=== PATIENT | female | born 1935 | race African-American/Black ===

== ENCOUNTER 2021-01-29 17:19 | Inpatient (IN) | payer OTHER ==
[~2021-01-29] VITALS: Ht 162.6 cm; Wt 54.4 kg
[2021-01-29 18:52] LABS: BASOPHILS % 1.3 % (0.0-2.0); EOSINOPHILS % 2.7 % (0.0-5.0); HEMOGLOBIN. 11.9 g/dL (12.0-16.0); LYMPHOCYTES % 24.6 % (20.0-50.0); MEAN CORPUSCULAR VOLUME 93.2 fL (81.0-99.0); MONOCYTES % 7.1 % (2.0-8.0); NEUTROPHILS % 64.3 % (40.0-76.0); PLATELET 249 x1000/uL (130-400); RED BLOOD CELL COUNT 3.97 mill/uL (4.2-5.4); RED CELL DISTRIBUTION WIDTH 13.1 % (11.6-14.6)
[2021-01-29 19:00] LABS: CHLORIDE 105 mEq/L (98-107)
[2021-01-30] MEDS: AMLODIPINE 10MG TABLET PO SCH (09:33)
[2021-01-30] MEDS ORDERED: DEXTROSE 50% WATER 50ML SYRINGE IV PRN (15:15)
[2021-01-30 16:00] VITALS: BP 122/68
[2021-01-30 16:08] LABS: BASOPHILS % 0.8 % (0.0-2.0); HEMATOCRIT. 38.4 % (36.0-48.0); HEMOGLOBIN. 12.9 g/dL (12.0-16.0); LYMPHOCYTES % 29.4 % (20.0-50.0); MEAN CORPUSCULAR HEMOGLOBIN 30.5 pg (28.0-32.0); MEAN PLATELET VOLUME 9.1 fl (7.4-10.4); MONOCYTES % 7.4 % (2.0-8.0); NEUTROPHILS % 60.4 % (40.0-76.0); PLATELET 245 x1000/uL (130-400); RED BLOOD CELL COUNT 4.22 mill/uL (4.2-5.4); RED CELL DISTRIBUTION WIDTH 12.8 % (11.6-14.6)
[2021-01-30 16:16] LABS: CHLORIDE 105 mEq/L (98-107)
[2021-01-30] MEDS ORDERED: POTASSIUM CHLORIDE 20MEQ TABLET SR PO NR (17:00)
[2021-01-30] MEDS: INSULIN LISPRO 100 UNITS/ML SUBCUT SCH ×2 (17:40→20:33)
[2021-01-30] MEDS: BLOOD SUGAR DIAGNOSTIC STRIP TEST SCH ×2 (17:58→20:33)
[2021-01-30 18:31] VITALS: BP 122/62
[2021-01-30 20:00] VITALS: BP 163/69
[2021-01-30] MEDS ORDERED: CLONIDINE 0.1MG TABLET PO PRN (20:15)
[2021-01-31] VITALS: BP 112/77
[2021-01-31 04:00] VITALS: BP 144/80
[2021-01-31] MEDS: INSULIN LISPRO 100 UNITS/ML SUBCUT SCH ×4 (05:34→21:00)
[2021-01-31] MEDS: BLOOD SUGAR DIAGNOSTIC STRIP TEST SCH ×4 (05:34→21:00)
[2021-01-31 08:00] VITALS: BP 141/79
[2021-01-31] MEDS ORDERED: LORAZEPAM 2MG/ML CPJ IV NR (10:00)
[2021-01-31] MEDS: AMLODIPINE 10MG TABLET PO SCH (10:11)
[2021-01-31 12:00] VITALS: BP 124/69
[2021-01-31 16:00] VITALS: BP 135/72
[2021-01-31 16:18] LABS: BASOPHILS % 1.2 % (0.0-2.0); EOSINOPHILS % 3.1 % (0.0-5.0); HEMOGLOBIN. 12.2 g/dL (12.0-16.0); LYMPHOCYTES % 28.6 % (20.0-50.0); MEAN CORPUSCULAR HEMOGLOBIN 30.1 pg (28.0-32.0); MEAN CORPUSCULAR VOLUME 91.1 fL (81.0-99.0); MEAN PLATELET VOLUME 9.7 fl (7.4-10.4); MONOCYTES % 7.8 % (2.0-8.0); NEUTROPHILS % 59.3 % (40.0-76.0); PLATELET 246 x1000/uL (130-400); RED BLOOD CELL COUNT 4.06 mill/uL (4.2-5.4); RED CELL DISTRIBUTION WIDTH 12.7 % (11.6-14.6)
[2021-01-31 16:27] LABS: CHLORIDE 107 mEq/L (98-107)
[2021-01-31] MEDS ORDERED: INFLUENZA VACCINE 05/PF 0.5 ML SYRINGE IM ONE (17:00)
[2021-01-31 20:04] VITALS: BP 134/70
[2021-02-01] VITALS: BP 106/70
[2021-02-01 04:00] VITALS: BP 119/80
[2021-02-01 07:20] LABS: VITAMIN B12 SERUM 418 pg/mL (211-911)
[2021-02-01 08:00] VITALS: BP 155/71
[2021-02-01] MEDS: AMLODIPINE 10MG TABLET PO SCH (11:06)
[2021-02-01 12:00] VITALS: BP 155/71
[2021-02-01] MEDS: BLOOD SUGAR DIAGNOSTIC STRIP TEST SCH ×2 (12:10→17:10)
[2021-02-01] MEDS: INSULIN LISPRO 100 UNITS/ML SUBCUT SCH ×2 (12:40→17:40)
[2021-02-01] MEDS ORDERED: AMLO10TA80 PO (15:56)
[2021-02-01 16:00] VITALS: BP 140/82
[2021-02-01 16:24] VITALS: BP 136/64
== END 2021-02-01 18:47 | disposition home or self-care (01) | DRG 74 ==
LOC: ER 17:19 → MICUSO 01-30 12:12 → EDBD 01-30 12:12 → 8WST 01-30 15:39
PROVIDERS: ADMIT Family Medicine; ATTEND Family Medicine
DX: G90.8 Other disorders of autonomic nervous system (principal); E44.0 Moderate protein-calorie malnutrition; F03.90 Unspecified dementia, unspecified severity, without behavioral disturbance, psychotic disturbance, mood disturbance, and anxiety; H54.8 Legal blindness, as defined in USA; R41.841 Cognitive communication deficit; E11.9 Type 2 diabetes mellitus without complications; E87.6 Hypokalemia; I11.9 Hypertensive heart disease without heart failure; Z68.20 Body mass index [BMI] 20.0-20.9, adult
CPT/HCPCS: 36415; 71045; 80053; 82607; 82962; 83036; 83880; 84443; 84484; 85025; 92610; 93005; 93306; 93880; 97162; 99285